=== PATIENT | female | born 1975 | race Caucasian/White ===

== ENCOUNTER → 2017-11-25 | Outpatient (CLI) | payer SELFPAY | LOC: RAD 11:44 | DX: S82.402A Unspecified fracture of shaft of left fibula, initial encounter for closed fracture (principal); M77.32 Calcaneal spur, left foot ==

== ENCOUNTER → 2020-12-29 | Outpatient (CLI) | payer SELFPAY | LOC: RAD 10:26 | DX: M41.86 Other forms of scoliosis, lumbar region (principal); M47.816 Spondylosis without myelopathy or radiculopathy, lumbar region; M48.07 Spinal stenosis, lumbosacral region ==